=== PATIENT | female | born 1990 | race African-American/Black ===

== ENCOUNTER 2018-09-21 17:01 | Emergency (ER) | payer OTHER ==
[~2018-09-21] VITALS: Ht 165.1 cm; Wt 75.7 kg
[2018-09-21 17:19] VITALS: BP 119/75
--- NOTE | 2018-09-21 17:39 | NUR ---
PT AMBULATED TO ER BED 07
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
[2018-09-21 18:22] LABS: BILIRUBIN,URINE NEGATIVE (NEGATIVE); BLOOD, URINE 1+ (NEGATIVE); COLOR,URINE YELLOW (YELLOW); LEUKOCYTE ESTERASE ,URINE 2+ (NEGATIVE); NITRITE, URINE NEGATIVE (NEGATIVE); UGLUCOSE NEGATIVE (NEGATIVE)
--- NOTE | 2018-09-21 18:22 | NUR ---
DR DE ANDA AT BEDSIDE
--- NOTE | 2018-09-21 18:22 | NUR ---
Hope beal in [facility] - 09/21/18 at [email or web address] QUINTERO AT [facility]
--- NOTE | 2018-09-21 18:22 | NUR ---
DR QUINTERO AT BEDSIDE
[2018-09-21 18:23] LABS: APPEARANCE,URINE HAZY (CLEAR)
[2018-09-21 18:32] LABS: WBC,URINE TOO MANY TO COUNT /HPF (0-5)
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
[2018-09-21 19:09] VITALS: BP 119/63
[2018-09-23 06:18] LABS: CHLAMYDIA TRACHOMATIS AMP DNA Negative (Negative)
== END 2018-09-21 19:07 | disposition home or self-care (01) ==
LOC: MED 17:01
DX: N39.0 Urinary tract infection, site not specified (principal); Z79.899 Other long term (current) drug therapy
CPT/HCPCS: 36415; 81001; 81002; 81025; 87086; 87491; 99283

== ENCOUNTER 2021-11-07 08:24 | Emergency (ER) | payer OTHER ==
[~2021-11-07] VITALS: Ht 165.1 cm; Wt 80.7 kg
[2021-11-07 08:33] VITALS: BP 100/70
--- NOTE | 2021-11-07 08:37 | NUR ---
PT AMBULATED TO BED 11 WITH STEADY GAIT
--- NOTE | 2021-11-07 08:42 | NUR ---
PT AMBULATED TO THE BATHROOM WITH STEADY GAIT
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
--- NOTE | 2021-11-07 08:58 | NUR ---
PT OFFERED WATER AND A BLANKET
[2021-11-07 10:12] LABS: BASOPHILS # (AUTO) 0.1 K/uL (0.00-0.22); BASOPHILS % (AUTO) 0.9 % (0.0-2.0); EOSINOPHILS # (AUTO) 0.1 K/uL (0-0.4); EOSINOPHILS % (AUTO) 1.7 % (0.0-4.0); HEMATOCRIT 43.6 % (36-48); HEMOGLOBIN 15.1 g/dL (12.0-16.0); LYMPHOCYTES # (AUTO) 1.6 K/uL (2.5-16.5); LYMPHOCYTES % (AUTO) 25.3 % (20.5-51.1); MEAN CORPUSCULAR HEMOGLOBIN 33 pg (27-31); MEAN CORPUSCULAR HGB CONC 35 g/dL (33-37); MEAN CORPUSCULAR VOLUME 93.9 fL (80-94); MONOCYTES # (AUTO) 0.4 K/uL (0.8-1.0); MONOCYTES % (AUTO) 5.8 % (1.7-9.3); NEUTROPHILS # (AUTO) 4.3 K/uL (1.8-7.7); NEUTROPHILS % (AUTO) 66.3 % (42.2-75.2); PLATELET COUNT (AUTO) 264 K/uL (140-450); RED BLOOD CELL COUNT(AUTO) 4.64 MIL/uL (4.20-5.40); RED CELL DISTRIBUTION WIDTH 12.7 % (11.6-13.7); WHITE BLOOD COUNT (AUTO) 6.4 K/uL (4.8-10.8)
[2021-11-07 10:20] LABS: ALBUMIN 3.2 g/dL (3.4-5.0); ANION GAP 10.9 (8-16); CARBON DIOXIDE 27.3 mmol/L (21-32); POTASSIUM 4.2 mmol/L (3.5-5.1); TOTAL BILIRUBIN 1.1 mg/dL (0.0-1.0)
--- NOTE | 2021-11-07 10:57 | NUR ---
Patient discharged with v/s stable. Written and verbal after care instructions given and explained. Patient verbalized understanding. Ambulatory with steady gait. All questions addressed prior to discharge. Advised to follow up with PMD.
[2021-11-07 11:02] VITALS: BP 133/75
== END 2021-11-07 10:55 | disposition home or self-care (01) ==
LOC: MED 08:24
DX: M54.50 Low back pain, unspecified (principal)
CPT/HCPCS: 36415; 80053; 81002; 81025; 85025; 99283

== ENCOUNTER 2021-12-15 03:01 | Emergency (ER) | payer OTHER ==
[~2021-12-15] VITALS: Ht 165.1 cm; Wt 82.6 kg
[2021-12-15 03:04] VITALS: BP 148/93
--- NOTE | 2021-12-15 03:10 | NUR ---
Patient ambulated to bed 10.
--- NOTE | 2021-12-15 03:13 | NUR ---
Called [phone] ([facility]) not available this time.
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
--- NOTE | 2021-12-15 03:52 | NUR ---
Received report from Alexandra DUNAWAY for continuation of care.
--- NOTE | 2021-12-15 03:57 | NUR ---
[place] [employer] at bedside to speak with patient.
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
--- NOTE | 2021-12-15 05:09 | NUR ---
Per [place] [employer] will transport patient to [facility]. [place] [employer]- [phone] Officer Talia Waite
--- NOTE | 2021-12-15 05:10 | NUR ---
WESLY ZARAGOZA discharged patient and provided patient paperwork. [place] escorted patient to [place].
== END 2021-12-15 05:10 | disposition home or self-care (01) ==
LOC: MED 03:01
DX: T76.21XA Adult sexual abuse, suspected, initial encounter (principal)
CPT/HCPCS: 99285

== ENCOUNTER 2022-01-18 20:50 | Emergency (ER) | payer OTHER ==
[~2022-01-18] VITALS: Ht 165.1 cm; Wt 81.2 kg
[2022-01-18 20:56] VITALS: BP 128/82
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
--- NOTE | 2022-01-18 22:22 | NUR ---
dr riley assessing pt in triage
--- NOTE | 2022-01-18 22:47 | NUR ---
LUNG PULLER OBTAINING BLOOD SAMPLE IN CHAIR A
--- NOTE | 2022-01-18 22:51 | NUR ---
PT TAKEN TO RADIOLOGY
--- NOTE | 2022-01-18 22:52 | NUR ---
PT TAKEN TO RADIOLOGY VIA
[2022-01-18 22:55] LABS: BASOPHILS # (AUTO) 0.1 K/uL (0.00-0.22); BASOPHILS % (AUTO) 1.2 % (0.0-2.0); EOSINOPHILS # (AUTO) 0.2 K/uL (0-0.4); EOSINOPHILS % (AUTO) 1.7 % (0.0-4.0); HEMATOCRIT 40.6 % (36-48); HEMOGLOBIN 14.1 g/dL (12.0-16.0); LYMPHOCYTES # (AUTO) 1.6 K/uL (2.5-16.5); LYMPHOCYTES % (AUTO) 16.1 % (20.5-51.1); MEAN CORPUSCULAR HEMOGLOBIN 33 pg (27-31); MEAN CORPUSCULAR HGB CONC 35 g/dL (33-37); MEAN CORPUSCULAR VOLUME 93.9 fL (80-94); MONOCYTES # (AUTO) 0.4 K/uL (0.8-1.0); MONOCYTES % (AUTO) 4.2 % (1.7-9.3); NEUTROPHILS # (AUTO) 7.8 K/uL (1.8-7.7); NEUTROPHILS % (AUTO) 76.8 % (42.2-75.2); PLATELET COUNT (AUTO) 248 K/uL (140-450); RED BLOOD CELL COUNT(AUTO) 4.32 MIL/uL (4.20-5.40); RED CELL DISTRIBUTION WIDTH 14.3 % (11.6-13.7); WHITE BLOOD COUNT (AUTO) 10.2 K/uL (4.8-10.8)
[2022-01-19 00:12] LABS: ANION GAP 14.8 (8-16); CARBON DIOXIDE 27.4 mmol/L (21-32); CREATININE 0.8 mg/dL (0.6-1.3); POTASSIUM 4.2 mmol/L (3.5-5.1)
[2022-01-19] MEDS ORDERED: CEPH-588 PO (00:42)
--- NOTE | 2022-01-19 01:30 | NUR ---
SWAB FOR ZANA SENT TO LAB
[2022-01-19 01:35] VITALS: BP 128/82
--- NOTE | 2022-01-19 01:35 | NUR ---
Patient discharged with v/s stable. Written and verbal after care instructions given and explained. Patient alert, oriented and verbalized understanding of instructions. Ambulatory with steady gait. All questions addressed prior to discharge. ID band removed. Patient advised to follow up with PMD. Rx of KEFLEX, given. Patient educated on indication of medication including possible reaction and side effects. Opportunity to ask questions provided and answered.
== END 2022-01-19 01:35 | disposition home or self-care (01) ==
LOC: MED 20:50
DX: R07.89 Other chest pain (principal); Z20.822 Contact with and (suspected) exposure to COVID-19
CPT/HCPCS: 36415; 71045; 80048; 81002; 81025; 84484; 85025; 93005; 99285